=== PATIENT | male | born 1970 | race African-American/Black ===

== ENCOUNTER 2023-03-24 02:18 | Emergency (ER) | payer MEDICAID ==
[~2023-03-24] VITALS: Ht 185.4 cm; Wt 82.0 kg
[~2023-03-24 02:18] MED LIST: LISI2.5T47 PO; PHEN100C4 PO
[2023-03-24 02:25] VITALS: BP 138/80; PULSE 78; RESP 18; TEMP 98.3; O2SAT 100
== END 2023-03-24 07:24 | disposition left against medical advice (07) ==
LOC: ER 02:18
DX: Z53.21 Procedure and treatment not carried out due to patient leaving prior to being seen by health care provider (principal)
CPT/HCPCS: 99281